=== PATIENT | female | born 1950 | race Caucasian/White ===

== ENCOUNTER 2019-08-21 05:20 | Day surgery (SDC) | payer OTHER ==
[~2019-08-21] VITALS: Ht 162.6 cm; Wt 102.3 kg
[~2019-08-21 05:20] MED LIST: ATOR40TA28 PO; GABA-1181 PO; INSU100V SQ; LOSA50TA37 PO
[2019-08-21] MEDS ORDERED: EPHEDrine SULFATE 50 MG/ML VIAL IM ONE (05:21)
[2019-08-21] MEDS ORDERED: KETAMINE HCL 50 MG/ML 10 ML VIAL IM ONE (05:21)
[2019-08-21] MEDS ORDERED: LIDOCAINE/PF 2% 5 ML VIAL IM ONE (05:21)
[2019-08-21] MEDS ORDERED: ONDANSETRON HCL 4 MG/2 ML VIAL IVP ONE (05:21)
[2019-08-21] MEDS ORDERED: MIDAZOLAM HCL 2 MG/2 ML VIAL IVP ONE (05:21)
[2019-08-21] MEDS ORDERED: 0.9% SODIUM CHLORIDE 10 ML VIAL IVP ONE (05:21)
[2019-08-21] MEDS ORDERED: RINGERS SOLUTION,LACTATED 1,000 ML IV ONE ×2 (05:36→06:00)
[2019-08-21 06:05] LABS: EOSINOPHILS % (AUTO) 2.7 % (1.0-6.0); HEMATOCRIT 40.4 % (36-46); HEMOGLOBIN 13.4 g/dL (12.0-16.0); LYMPHOCYTES # (AUTO) 2.2 K/uL (1.0-4.8); LYMPHOCYTES % (AUTO) 33.3 % (22.0-44.0); MEAN CORPUSCULAR HEMOGLOBIN 29.9 pg (26.0-34.0); MEAN CORPUSCULAR HGB CONC 33.2 G/dL (31.0-37.0); MEAN CORPUSCULAR VOLUME 90 fL (80-100); MONOCYTES # (AUTO) 0.5 K/uL (0.1-1.0); MONOCYTES % (AUTO) 7.5 % (2.0-9.0); NEUTROPHILS # (AUTO) 3.7 K/uL (1.8-7.7); NEUTROPHILS % (AUTO) 55.5 % (40.0-70.0); PLATELET COUNT (AUTO) 232 K/uL (150-450); RED BLOOD CELL COUNT(AUTO) 4.48 MIL/uL (4.00-5.20); RED CELL DISTRIBUTION WIDTH 14.4 % (11.5-14.5)
[2019-08-21 06:12] LABS: ANION GAP 10 mmol/L (8-16); CALCIUM, TOTAL 9.4 mg/dL (8.8-10.5); CARBON DIOXIDE 25 mmol/L (22-29); CHLORIDE 105 mmol/L (98-107); CREATININE 0.83 mg/dL (0.60-1.30); GLOMERULAR FILTR. RATE CALC > 60 mL/min (>60); GLUCOSE,RANDOM 110 mg/dL (70-110); POTASSIUM 4.1 mmol/L (3.5-5.1); SODIUM SERUM 140 mmol/L (136-145); UREA NITROGEN, BLOOD 30 mg/dL (7-18)
[2019-08-21] MEDS ORDERED: BUPIVACAINE HCL/PF 0.5% 30 ML VIAL ONE (07:16)
[2019-08-21] MEDS ORDERED: BACITRACIN 28.4 GM OINTMENT TP ONE (07:50)
[2019-08-21] MEDS ORDERED: MEPERIDINE-PF 25 MG/ML VIAL IVP PRN (08:00)
[2019-08-21] MEDS ORDERED: OXYGEN THERAPY IH SCH (08:00)
[2019-08-21] MEDS ORDERED: FentaNYL CITRATE-PF 100 MCG/2 ML VIAL IVP PRN (08:00)
== END 2019-08-21 09:45 | disposition home or self-care (01) ==
LOC: SURGERY 05:20
PROVIDERS: ATTEND Orthopaedic Surgery
DX: M67.432 Ganglion, left wrist (principal); M65.842 Other synovitis and tenosynovitis, left hand; Z11.59 Encounter for screening for other viral diseases
CPT/HCPCS: 25111; 36415; 80048; 85025; 87635; 88304; J0690; J2250; J2405; J3490 ×4; J7120